=== PATIENT | male | born 1995 | race Caucasian/White ===

== ENCOUNTER 2016-10-06 09:44 | Day surgery (SDC) | payer BC ==
[2016-10-06] MEDS ORDERED: MIDAZOLAM HCL 2MG/2ML VIAL IV ONE (14:00)
[2016-10-06] MEDS ORDERED: PROPOFOL 10 MG/ML VIAL IV ONE (14:00)
[2016-10-06] MEDS ORDERED: LIDOCAINE 2% MDV (20MG/ML) 20ML VIAL IV ONE (14:00)
--- NOTE | 2016-10-11 18:29 | Operative Note ---
DATE OF SURGERY: 10/06/2016 OPERATION: COLONOSCOPY with cold forceps polypectomy and random biopsy. PREOPERATIVE DIAGNOSIS: Diarrhea and abdominal pain. POSTOPERATIVE DIAGNOSES: 1. Fair prep. 2. Diminutive rectal polyp of unclear significance. 3. Normal terminal ileum. PREPARATION QUALITY: Fair. ESTIMATED BLOOD LOSS: Minimal. SPECIMENS: Random colon and rectal polyp. COMPLICATIONS: None apparent. PROCEDURE: After informed consent was obtained from the patient, he was placed in the left lateral decubitus position in the endoscopy suite, sedated and monitored by the department of anesthesia. Digital rectal examination was unremarkable. A well-lubricated CYQ031 colonoscope was inserted into the rectum and advanced to the cecum. The ileocecal valve and appendiceal orifice were identified and were unremarkable. The ileocecal valve was cannulated revealing a normal-appearing distal terminal ileum. The ascending colon, transverse colon, descending colon, and sigmoid colon demonstrated a residual cloudy liquid which numerous areas were lavaged and fluid evacuated. The preparation quality was fair at worst and perhaps even good. In any event, no abnormalities were noted. However, biopsies were obtained from the ascending, transverse, and descending colon to rule out microscopic colitis. In the proximal rectum, there was a diminutive polyps removed with a cold forceps. Minimal bleeding was noted. The remainder of the rectosigmoid colon, sigmoid colon, and rectum were unremarkable. J-turn views of the anorectum were unremarkable. The endoscope was straightened, the rectal ampulla deflated, and the endoscope was removed. RECOMMENDATIONS: At this point I would be suspicious the patient may suffer from overflow diarrhea given the preparation quality noted. We will await results of tissue histology. The patient should be on a fiber supplement and a probiotic and can use the glycopyrrolate as needed. Further recommendations will be based on tissue histology. As always, thank you for allowing me to participate in the healthcare of your patients. CC: NINA Henderson
== END 2016-10-06 12:00 | disposition home or self-care (01) ==
LOC: HOP 09:44
PROVIDERS: ATTEND Internal Medicine Gastroenterology
DX: K62.1 Rectal polyp (principal)

== ENCOUNTER 2018-08-20 07:30 | Emergency (ER) | payer BC | END 2018-08-20 07:50 | disposition home or self-care (01) | LOC: ER 07:30 | DX: Z53.20 Procedure and treatment not carried out because of patient's decision for unspecified reasons (principal) ==

== ENCOUNTER 2019-03-30 18:51 | Emergency (ER) | payer BC ==
[2019-03-30] MEDS ORDERED: CEPHALEXIN 500 MG CAPSULE PO STA (19:09)
[2019-03-30] MEDS ORDERED: Diph,Pert(Acell),Tet Vac 0.5 ML SYR IM ONE (19:09)
--- NOTE | 2019-03-30 19:24 | Emergency Department Record ---
History of Present Illness - General Chief Complaint: Laceration(s) Time Seen by Provider: 03/30/19 19:03 Source: Patient Mode of Arrival: Ambulatory Limitations: No limitations - History of Present Illness Initial Commments: The patient cut his distal L thumb with a knife at work about 3 hours ago. He denies any numbness or tingling and his Td is not UTD. Onset/Timin -: Hour(s) Place: Work Context: Accidental Associated Symptoms: None Treatments Prior to Arrival: Bandage - Iselin Coma Scale Eye Response: (4) Open spontaneously Motor Response: (6) Obeys commands Verbal Response: (5) Oriented Silvia Total: 15 - Related Data Previous Rx's Medication Instructions Recorded Cephalexin [Keflex] 500 mg PO QID #20 cap 03/30/19 Allergies Allergy/AdvReac Type Severity Reaction Status Date / Time No Known Drug Allergies Allergy Verified 03/30/19 18:58 Travel Screening - Travel/Exposure Within Last 30 Days Have you traveled within the last 30 days?: No - Travel/Exposure Within Last Year Have you traveled outside the [place] in the last year?: No - Additonal Travel Details Have you been exposed to anyone with a communicable illness?: No - Travel Symptoms Symptom Screening: None Review of Systems Constitutional: Denies: Chills, Fever Past Medical History - SOCIAL HISTORY Smoking Status: Former smoker Alcohol Use: Rare Drug Use: Occasional Drug Use Detail:: Marijuana - RESPIRATORY Hx Respiratory Disorders: No - CARDIOVASCULAR Hx Cardio Disorders: No - NEURO Hx Neuro Disorders: No - GI Hx GI Disorders: Yes Hx Abdominal Pain: Yes (INTERMITTENT) Comment:: DIARRHEA - Hx Genitourinary Disorders: No - ENDOCRINE Hx Endocrine Disorders: No - MUSCULOSKELETAL Hx Musculoskeletal Disorders: No - PSYCH Hx Psych Problems: No - HEMATOLOGY/ONCOLOGY Hx Hematology/Oncology Disorders: No Family Medical History Any Significant Family History?: No Physical Exam - General General Appearance: Alert, Cooperative, No acute distress - Head Head exam: Atraumatic - Eye Eye exam: Normal appearance - Extremities Extremities exam: negative: Normal inspection (There is a 1 cm lac to the distal L thumb ulnar surface. ) Image of Finger Tip: 1 - 1 cm lac. 2 - 1 cm lac. - Neurological Neurological exam: Alert. negative: Motor sensory deficit Course Vital Signs 03/30/19 18:58 Temperature 98.2 F Pulse Rate 68 Respiratory 20 Rate Blood Pressure 167/98 Pulse Ox 98 - Reevaluation(s) Reevaluation #1: Procedure note: The L thumb lac was prepped with betadine and the thumb was anesth. with 3 cc's Lido 1% using a digital block technique. The lac was cleansed with sterile saline and was very superficial and closed with 3 4.0 nylon sutures. There were no complications. 03/30/19 19:38 Disposition Disposition: Discharge Clinical Impression: Laceration of thumb Qualifiers: Encounter type: initial encounter Damage to nail status: without damage Foreign body presence: without foreign body Laterality: left Qualified Code(s): S61.012A - Laceration without foreign body of left thumb without damage to nail, initial encounter Disposition: Home, Self-Care Condition: (2) Stable Instructions: Laceration (ED) Additional Instructions: Keep dry for 2 days then no soaking or swimming. Take the Keflex as directed and use OTC pain medicines as needed. Have the sutures removed in 10 days and return sooner for any signs of infection. Prescriptions: Cephalexin [Keflex] 500 mg PO QID #20 cap Forms: Patient Portal Access Time of Disposition: 19:37 Quality - Quality Measures Quality Measures: N/A - Blood Pressure Screening View Details: Yes Does Patient Have Any of the Following: No Blood Pressure Classification: Hypertensive Reading Systolic Measurement: 167 Diastolic Measurement: 98 Screening for High Blood Pressure: < First Hypertensive BP, F/U Documented > [G8950] First Hypertensive Follow-up Interventions: Referral to alternative/primary care provider.
== END 2019-03-30 19:45 | disposition home or self-care (01) ==
LOC: ER 18:51
DX: S61.012A Laceration without foreign body of left thumb without damage to nail, initial encounter (principal); W26.0XXA Contact with knife, initial encounter; Y99.0 Civilian activity done for income or pay
CPT/HCPCS: 12001; 90715; 96372; 99283; 99284

== ENCOUNTER 2019-06-10 19:19 | Emergency (ER) | payer BC ==
--- NOTE | 2019-06-10 19:36 | Emergency Department Record ---
History of Present Illness - General Chief complaint: ENT Stated complaint: ;T EAR PAIN Time Seen by Provider: 06/10/19 19:34 Source: Patient Mode of Arrival: Ambulatory Limitations: No limitations - History of Present Illness Initial comments: 24 yo male presents to ED for evaluation of a "plugged left ear" for months. Patient denies fevers, chills, or drainage from the ear, denies sore throat or decrease in hearing. Patient reports that the ear feels "plugged with fluid". Patient has not taken anything for his symptoms prior to arrival. Patient denies health problems at his baseline. MD complaint: Other Onset/Timin -: Month(s) Location: L ear Severity scale (1-10): 2 Quality: Aching, Sharp Consistency: Intermittent Improves with: None Worsens with: None Context-Epistaxis: History of similar - Related Data Allergies Allergy/AdvReac Type Severity Reaction Status Date / Time No Known Drug Allergies Allergy Verified 03/30/19 18:58 Travel Screening - Travel/Exposure Within Last 30 Days Have you traveled within the last 30 days?: No - Travel/Exposure Within Last Year Have you traveled outside the [place] in the last year?: No - Additonal Travel Details Have you been exposed to anyone with a communicable illness?: No - Travel Symptoms Symptom Screening: None Review of Systems Constitutional: Denies: Chills, Fever, Malaise, Night sweats Eyes: Denies: Eye discharge, Eye pain ENT: Reports: Congestion. Denies: Ear pain, Epistaxis Respiratory: Denies: Cough, Dyspnea Cardiovascular: Denies: Chest pain, Dyspnea on exertion Endocrine: Denies: Fatigue, Heat or cold intolerance Gastrointestinal: Denies: Abdominal pain, Nausea, Vomiting Genitourinary: Denies: Incontinence, Retention Musculoskeletal: Denies: Arthralgia, Back pain Skin: Denies: Bruising, Change in color Neurological: Denies: Abnormal gait, Confusion, Headache, Seizure Psychiatric: Denies: Anxiety Hematological/Lymphatic: Denies: Anemia, Blood Clots Past Medical History - SOCIAL HISTORY Smoking Status: Former smoker Alcohol Use: None Drug Use: Heavy Drug Use Detail:: Marijuana - RESPIRATORY Hx Respiratory Disorders: No - CARDIOVASCULAR Hx Cardio Disorders: No - NEURO Hx Neuro Disorders: No - GI Hx GI Disorders: Yes Hx Abdominal Pain: Yes (INTERMITTENT) Comment:: DIARRHEA - Hx Genitourinary Disorders: No - ENDOCRINE Hx Endocrine Disorders: No - MUSCULOSKELETAL Hx Musculoskeletal Disorders: No - PSYCH Hx Psych Problems: No - HEMATOLOGY/ONCOLOGY Hx Hematology/Oncology Disorders: No Family Medical History Any Significant Family History?: Yes Hx Diabetes: Mother Physical Exam - General General Appearance: Alert, Oriented x3, Cooperative, No acute distress Limitations: No limitations - Head Head exam: Atraumatic, Normocephalic, Normal inspection Head exam detail: negative: Abrasion, Contusion, Barker's sign, General tenderness, Hematoma, Laceration - Eye Eye exam: Normal appearance. negative: Conjunctival injection, Periorbital swelling, Periorbital tenderness, Scleral icterus - ENT Ear exam: Other (Fluid posterior to the left TM, no evidence for infection on examination.). negative: Auricular hematoma, Auricular trauma Nasal Exam: negative: Active bleeding, Discharge, Dried blood, Foreign body Mouth exam: negative: Drooling, Laceration, Muffled voice, Tongue elevation Throat exam: negative: Tonsillar erythema, Tonsillomegaly, R peritonsillar mass, L peritonsillar mass - Neck Neck exam: Normal inspection. negative: Meningismus, Tenderness - Respiratory Respiratory exam: Normal lung sounds bilaterally. negative: Rales, Respiratory distress, Rhonchi, Stridor - Cardiovascular Cardiovascular Exam: Regular rate, Normal rhythm, Normal heart sounds - GI/Abdominal GI/Abdominal exam: Soft. negative: Rebound, Rigid, Tenderness - Rectal Rectal exam: Deferred - exam: Deferred - Extremities Extremities exam: Normal inspection. negative: Pedal edema, Tenderness - Back Back exam: Denies: CVA tenderness (R), CVA tenderness (L) - Neurological Neurological exam: Alert, Normal gait, Oriented X3 - Psychiatric Psychiatric exam: Normal affect, Normal mood - Skin Skin exam: Normal color. negative: Abrasion Type of lesion: negative: abrasion Course Vital Signs 06/10/19 19:23 Temperature 97.9 F Pulse Rate [ 82 Left] Respiratory 16 Rate Blood Pressure 179/110 [Left Arm] Pulse Ox 100 Disposition Disposition: Discharge Clinical Impression: Eustachian tube dysfunction Qualifiers: Laterality: left Qualified Code(s): H69.82 - Other specified disorders of Eustachian tube, left ear Disposition: Home, Self-Care Condition: (2) Stable Instructions: Allergic Rhinitis (ED) Additional Instructions: Return to ED if your symptoms worsen or if you have any concerns. [place] OTC as directed. Follow-up with your family doctor in 3-5 days as directed. Forms: Patient Portal Access Time of Disposition: 19:36 Quality - Quality Measures Quality Measures: N/A - Blood Pressure Screening Does Patient Have Any of the Following: No Blood Pressure Classification: Hypertensive Reading Systolic Measurement: 179 Diastolic Measurement: 110 Screening for High Blood Pressure: < First Hypertensive BP, F/U Documented > [G8950] First Hypertensive Follow-up Interventions: Referral to alternative/primary care provider.
== END 2019-06-10 20:17 | disposition home or self-care (01) ==
LOC: ER 19:19
DX: H69.82 Other specified disorders of Eustachian tube, left ear (principal); H92.02 Otalgia, left ear; Z87.891 Personal history of nicotine dependence
CPT/HCPCS: 99282